=== PATIENT | female | born 1995 | race Two or more races ===

== ENCOUNTER 2017-06-22 09:17 | Inpatient (IN) | payer OTHER ==
[~2017-06-22] VITALS: Ht 160 cm; Wt 63.7 kg
[2017-06-22 10:01] LABS: Basophils # (auto) 0 uL; Basophils % (auto) 0.5 % (0.0-2.0); Eosinophils # (auto) 0.1 uL; Eosinophils % (auto) 1.9 % (0.0-7.0); Hematocrit 40.2 % (36.0-46.0); Hemoglobin 13.2 g/dL (12.2-16.2); Lymphocytes # (auto) 1.5 uL; Lymphocytes % (auto) 23.7 % (10.0-50.0); Mean Corpuscular Hemoglobin 27.1 pg (28.0-32.0); Mean Corpuscular Hgb Conc. 32.7 g/dL (32.0-36.0); Mean Corpuscular Volume 82.7 fL (80.0-100.0); Monocytes # (auto) 0.5 uL; Monocytes % (auto) 7.5 % (0.0-12.0); Neutrophils # (auto) 4.3 uL; Neutrophils % (auto) 66.4 % (37.0-80.0); Nucleated Red Blood Cells % 0.1 %; Platelet Count (auto) 188 10^3/uL (140-450); Red Blood Cells 4.86 10^6/uL (4.0-5.20); Red Cell Distribution Width 12.5 % (11.8-14.3); White Blood Cell 6.5 10^3/uL (4.4-10.8)
[2017-06-22 10:20] LABS: Albumin 4.1 g/dL (3.4-5.0); BUN/Creatinine Ratio 13.6; Potassium 3.8 mmol/L (3.5-5.1)
[2017-06-22 10:30] LABS: Bilirubin, Total 0.3 mg/dL (0.2-1.0); Calcium 8.9 mg/dL (8.5-10.1); Total Protein 7.9 g/dL (6.4-8.2)
[2017-06-22] MEDS ORDERED: NITROGLYCERIN 0.4 MG SL TAB SL ONE (13:15)
[2017-06-22] MEDS ORDERED: ASPirin 325 MG TAB PO ONE (13:15)
[2017-06-22] MEDS ORDERED: LORazepam 0.5 MG TAB PO ONE (13:45)
[2017-06-22] MEDS ORDERED: LORazepam 0.5 MG TAB PO PRN (13:45)
[2017-06-22] MEDS ORDERED: PROMETHAZINE HCL 25 MG/ML 1ML IV PRN (13:45)
[2017-06-22] MEDS ORDERED: HYDROcodone-ACET 5/325MG TAB PO PRN (13:45)
[2017-06-22] MEDS ORDERED: MORPHINE SULFATE 4 MG/ML SYR/VIAL IV PRN ×2 (13:45)
[2017-06-22] MEDS ORDERED: TEMAZEPAM 15 MG CAP PO PRN (13:45)
[2017-06-22] MEDS ORDERED: LACTULOSE 20Gm/30ML SOLN PO PRN (13:45)
[2017-06-22] MEDS ORDERED: ACETAMINOPHEN 500 MG TAB PO PRN (13:45)
[2017-06-22 14:01] LABS: INR 0.97 (0.9-1.15); Partial Thromboplastin Time 27.2 sec (22.64-33.71); Prothrombin Time 10.6 sec (9.37-12.3)
[2017-06-22 14:26] LABS: Alcohol, Urine < 3.0 mg/dL (0-5); Amphetamine Screen, Urine NEGATIVE (NEGATIVE); Barbiturate Scree,Urine NEGATIVE (NEGATIVE); Benzodiazephine Screen, Urine NEGATIVE (NEGATIVE); Cannabinoid Screen, Urine NEGATIVE (NEGATIVE); Cocaine Screen, Urine NEGATIVE (NEGATIVE); Opiate Scree,Urine NEGATIVE (NEGATIVE); Phencyclidine Screen, Urine NEGATIVE (NEGATIVE)
[2017-06-22] MEDS ORDERED: CLAR500T PO (16:23)
[2017-06-22] MEDS ORDERED: BUPR75TA9 PO (16:23)
[2017-06-22] MEDS ORDERED: AMOX250C3 PO (16:23)
[2017-06-22] MEDS ORDERED: OME20GT PO (16:23)
[2017-06-22 17:00] VITALS: BP_SYST 120; BP_SYST 121; BP_DIAS 68
[2017-06-22] MEDS: AMOXICILLIN TRIHYDRATE 250 MG CAP PO SCH (21:27)
[2017-06-22] MEDS: CLARITHROMYCIN 500 MG TAB PO SCH (21:27)
[2017-06-22] MEDS: CARVEDILOL 3.125 MG TAB PO SCH (21:28)
[2017-06-22] MEDS: buPROPion HCL 75 MG TAB PO SCH (21:34)
[2017-06-22 22:30] VITALS: BP 108/55
[2017-06-23 05:42] VITALS: BP 92/64
[2017-06-23 09:19] VITALS: BP 122/64
[2017-06-23] MEDS: AMOXICILLIN TRIHYDRATE 250 MG CAP PO SCH (09:57)
[2017-06-23] MEDS: buPROPion HCL 75 MG TAB PO SCH ×2 (09:58→10:00)
[2017-06-23] MEDS ORDERED: PANTOPRAZOLE 40 MG TAB PO SCH (10:00)
[2017-06-23] MEDS: CARVEDILOL 3.125 MG TAB PO SCH (10:00)
[2017-06-23] MEDS ORDERED: ASPirin 81 mg TAB PO SCH (10:00)
[2017-06-23] MEDS ORDERED: BUPROPION 150 MG PO SCH (10:00)
[2017-06-23] MEDS: CLARITHROMYCIN 500 MG TAB PO SCH (10:01)
[2017-06-23] MEDS ORDERED: METOPROLOL SUCCINATE XL 50 MG TAB PO ONE (11:00)
[2017-06-23 12:25] VITALS: BP 122/64
[2017-06-24] MEDS ORDERED: METOPROLOL SUCCINATE XL 50 MG TAB PO SCH (10:00)
== END 2017-06-23 13:15 | disposition home or self-care (01) | DRG 313 ==
LOC: ER 09:17 → TELE 09:18 → TELE-CENTR 16:03
PROVIDERS: ADMIT Internal Medicine; ATTEND Family Medicine
DX: R07.89 Other chest pain (principal); I24.9 Acute ischemic heart disease, unspecified; I42.1 Obstructive hypertrophic cardiomyopathy; I42.2 Other hypertrophic cardiomyopathy; B96.81 Helicobacter pylori [H. pylori] as the cause of diseases classified elsewhere; F32.9 Major depressive disorder, single episode, unspecified; F41.9 Anxiety disorder, unspecified; K29.70 Gastritis, unspecified, without bleeding; Z95.810 Presence of automatic (implantable) cardiac defibrillator; I08.0 Rheumatic disorders of both mitral and aortic valves
CPT/HCPCS: 36415; 71046; 80053; 80061; 80307; 82550; 83880; 84443; 84484; 85025; 85379; 85610; 85730; 93005; 93306

== ENCOUNTER 2017-09-09 11:13 | Inpatient (IN) | payer OTHER ==
[~2017-09-09] VITALS: Ht 157.5 cm; Wt 64.1 kg
[~2017-09-09 11:13] MED LIST: AMOX250C3 PO; BUPR75TA9 PO; CLAR500T PO; OME20GT PO
[2017-09-09 12:06] LABS: Basophils # (auto) 0 uL; Basophils % (auto) 0.5 % (0.0-2.0); Eosinophils # (auto) 0.9 uL; Eosinophils % (auto) 10.4 % (0.0-7.0); Hematocrit 39.8 % (36.0-46.0); Hemoglobin 13.1 g/dL (12.2-16.2); Lymphocytes # (auto) 2.3 uL; Lymphocytes % (auto) 27.5 % (10.0-50.0); Mean Corpuscular Hemoglobin 27.3 pg (28.0-32.0); Mean Corpuscular Hgb Conc. 32.9 g/dL (32.0-36.0); Mean Corpuscular Volume 83.1 fL (80.0-100.0); Monocytes # (auto) 0.7 uL; Neutrophils # (auto) 4.5 uL; Neutrophils % (auto) 53.6 % (37.0-80.0); Platelet Count (auto) 212 10^3/uL (140-450); Red Blood Cells 4.79 10^6/uL (4.0-5.20); Red Cell Distribution Width 12.5 % (11.8-14.3); White Blood Cell 8.5 10^3/uL (4.4-10.8)
[2017-09-09 12:27] LABS: Albumin 4.1 g/dL (3.4-5.0); BUN/Creatinine Ratio 15.3; Bilirubin, Total 0.3 mg/dL (0.2-1.0); Calcium 9.2 mg/dL (8.5-10.1); Magnesium 2.7 mg/dL (1.6-2.6); Potassium 3.8 mmol/L (3.5-5.1); Total Protein 8.1 g/dL (6.4-8.2)
[2017-09-09] MEDS ORDERED: ASPirin-EC 81 mg tab PO ONE (13:15)
[2017-09-09 13:45] LABS: Urine WBC None Seen /hpf (0 - 5)
[2017-09-09] MEDS ORDERED: ONDANSETRON HCL 4 MG/2 ML VIAL IV ONE (13:45)
[2017-09-09 13:52] LABS: Urine Bacteria NONE SEEN /hpf (None Seen); Urine Blood Negative /uL (Negative); Urine Specific Gravity 1.005 (1.001-1.035)
[2017-09-09] MEDS ORDERED: METOPROLOL SUCCINATE XL 50 MG TAB PO SCH (15:15)
[2017-09-09] MEDS ORDERED: PROMETHAZINE HCL 25 MG/ML 1ML IV PRN (15:15)
[2017-09-09] MEDS ORDERED: LORazepam 0.5 MG TAB PO PRN (15:15)
[2017-09-09] MEDS ORDERED: ACETAMINOPHEN 500 MG TAB PO PRN (15:15)
[2017-09-09] MEDS ORDERED: NITROGLYCERIN 0.4 MG SL TAB SL PRN (15:15)
[2017-09-09] MEDS ORDERED: MORPHINE SULFATE 4 MG/ML SYR/VIAL IV PRN ×2 (15:15)
[2017-09-09] MEDS ORDERED: LACTULOSE 20Gm/30ML SOLN PO PRN ×2 (15:15)
[2017-09-09] MEDS ORDERED: TEMAZEPAM 15 MG CAP PO PRN (15:15)
[2017-09-09] MEDS ORDERED: HYDROcodone-ACET 5/325MG TAB PO PRN (15:15)
[2017-09-09 15:47] LABS: Alcohol, Urine < 3.0 mg/dL (0-5); Amphetamine Screen, Urine NEGATIVE (NEGATIVE); Barbiturate Scree,Urine NEGATIVE (NEGATIVE); Benzodiazephine Screen, Urine NEGATIVE (NEGATIVE); Cannabinoid Screen, Urine NEGATIVE (NEGATIVE); Cocaine Screen, Urine NEGATIVE (NEGATIVE); Opiate Scree,Urine NEGATIVE (NEGATIVE); Phencyclidine Screen, Urine NEGATIVE (NEGATIVE)
[2017-09-09] MEDS ORDERED: ONDANSETRON HCL 4 MG/2 ML VIAL IV PRN (17:00)
[2017-09-09 17:45] VITALS: BP 119/67
[2017-09-09 18:10] VITALS: BP 119/67
[2017-09-09] MEDS ORDERED: MIRT15TA3 PO (18:21)
[2017-09-09] MEDS ORDERED: ONDA8TAB6 PO (18:21)
[2017-09-09] MEDS ORDERED: RANI1TAB6 PO (18:21)
[2017-09-09] MEDS: METOCLOPRAMIDE HCL 5MG/ml INJ 2ml VIAL IV PRN (18:48)
[2017-09-09] MEDS: PANTOPRAZOLE 40 MG TAB PO SCH (21:33)
[2017-09-09 21:34] VITALS: BP 93/57
[2017-09-09] MEDS ORDERED: OMEPRAZOLE 20MG/10ML ORAL SUSP PO SCH (22:00)
[2017-09-09] MEDS: SODIUM CHLOR 0.9% PF (SALINE LOCK) 10ML VIAL/SYR IV SCH (22:22)
[2017-09-09] MEDS ORDERED: MIRTAZAPINE 30 MG TAB ONE (22:40)
[2017-09-09] MEDS ORDERED: MIRTAZAPINE 30 MG TAB PO SCH (23:00)
[2017-09-10 05:32] VITALS: BP 103/53
[2017-09-10 06:15] LABS: Cholesterol 182 mg/dL (< 200); HDL Cholesterol 49 mg/dL (40-59); LDL Cholesterol 126 mg/dL (< 100); Triglycerides 108 mg/dL (< 150)
[2017-09-10] MEDS: SODIUM CHLOR 0.9% PF (SALINE LOCK) 10ML VIAL/SYR IV SCH ×2 (06:24→14:52)
[2017-09-10] MEDS ORDERED: buPROPion HCL 75 MG TAB PO SCH ×2 (07:00→19:00)
[2017-09-10 09:00] VITALS: BP 124/65
[2017-09-10] MEDS ORDERED: buPROPion HCL 75 MG TAB PO ONE (09:30)
[2017-09-10] MEDS ORDERED: METOPROLOL SUCCINATE XL 50 MG TAB PO SCH (10:00)
[2017-09-10] MEDS ORDERED: ASPirin 81 mg TAB PO SCH (10:00)
[2017-09-10] MEDS: PANTOPRAZOLE 40 MG TAB PO SCH (10:03)
[2017-09-10] MEDS: METOCLOPRAMIDE HCL 5MG/ml INJ 2ml VIAL IV PRN (10:23)
[2017-09-10 12:45] VITALS: BP 107/59
[2017-09-11] MEDS ORDERED: buPROPion HCL 75 MG TAB PO SCH (10:00)
== END 2017-09-10 14:50 | disposition home or self-care (01) | DRG 292 ==
LOC: ER 11:13 → TELE-EAST 11:14
PROVIDERS: ADMIT Internal Medicine; ATTEND Internal Medicine
DX: I50.41 Acute combined systolic (congestive) and diastolic (congestive) heart failure (principal); I42.2 Other hypertrophic cardiomyopathy; R07.89 Other chest pain; F41.8 Other specified anxiety disorders; I35.0 Nonrheumatic aortic (valve) stenosis; F32.9 Major depressive disorder, single episode, unspecified; E66.3 Overweight; Z83.3 Family history of diabetes mellitus; Z82.49 Family history of ischemic heart disease and other diseases of the circulatory system; Z86.19 Personal history of other infectious and parasitic diseases; Z68.25 Body mass index [BMI] 25.0-25.9, adult; Z95.810 Presence of automatic (implantable) cardiac defibrillator
CPT/HCPCS: 36415; 71045; 80053; 80061; 80307; 81001; 82550; 83735; 83880; 84443; 84484; 85025; 85379; 85652; 86141; 93005; 96374; 99291

== ENCOUNTER 2023-06-11 20:21 | Emergency (ER) | payer BC, OTHER ==
[~2023-06-11] VITALS: Ht 157.5 cm; Wt 70.5 kg
[~2023-06-11 20:21] MED LIST changes: -AMOX250C3 PO; -BUPR75TA9 PO; +BUPR75TA96 PO; -CLAR500T PO; +MIRT1TAB38 PO; +ONDA-143 PO; +RANI-435 PO
[2023-06-11 20:48] VITALS: BP 143/90; PULSE 89; RESP 19; O2SAT 100
== END 2023-06-12 00:43 | disposition left against medical advice (07) ==
LOC: ER 20:21
DX: R25.3 Fasciculation (principal); T43.225A Adverse effect of selective serotonin reuptake inhibitors, initial encounter; Z53.21 Procedure and treatment not carried out due to patient leaving prior to being seen by health care provider; Y92.89 Other specified places as the place of occurrence of the external cause

== ENCOUNTER 2024-03-19 00:18 | Emergency (ER) | payer BC ==
[~2024-03-19] VITALS: Ht 157.5 cm; Wt 80.2 kg
[2024-03-19 01:13] LABS: Hematocrit 41.6 % (36.0-46.0); Hemoglobin 13.7 g/dL (12.2-16.2); Mean Corpuscular Hemoglobin 27.4 pg (28.0-32.0); Mean Corpuscular Hgb Conc. 32.9 g/dL (32.0-36.0); Mean Corpuscular Volume 83.1 fL (80.0-100.0); Platelet Count (auto) 190 10^3/uL (140-450); Red Blood Cells 5.01 10^6/uL (4.0-5.20); Red Cell Distribution Width 12.5 % (11.8-14.3); White Blood Cell 15.6 10^3/uL (4.4-10.8)
[2024-03-19 01:15] LABS: Basophils % (manual) 0 (0.0-2.0); Blast Cells 0; Eosinophils % (manual) 0 (0-7); Metamyelocytes % 0; Myelocytes % 0; Promyelocytes % 0; Reactive Lymphocytes 0
[2024-03-19 01:28] LABS: Alanine Aminotransferase 15 U/L (7-40); Albumin 5.1 g/dL (3.2-4.8); Alkaline Phosphatase 63 U/L (46-116); Anion Gap 9 (5-15); Aspartate Aminotransferase 30 U/L (13-40); BUN/Creatinine Ratio 12.5 (10.0-20.0); Blood Urea Nitrogen 11 mg/dL (9-23); Calcium 10.1 mg/dL (8.7-10.4); Carbon Dioxide 21 mmol/L (20-31); Chloride 108 mmol/L (98-107); Glucose 129 mg/dL (74-106); Lipase 37 U/L (12-53); Potassium 3.6 mmol/L (3.5-5.1); Sodium 138 mmol/L (136-145)
[2024-03-19 01:29] LABS: Total Protein 7.9 g/dL (5.7-8.2)
[2024-03-19 01:36] LABS: Band Neutrophils % (manual) 6; Lymphocytes % (manual) 1 (10.0-50.0); Monocytes % (manual) 4 (0-12); Platelet Estimate Adequate; RBC Morphology Normal
[2024-03-19 01:40] LABS: Urine Bacteria None Seen /hpf (None Seen); Urine WBC None Seen /hpf (0 - 5)
[2024-03-19 02:08] LABS: Urine Amorphous Crystal MANY /hpf (None Seen); Urine Blood Negative /uL (Negative); Urine Clarity Ex.Turbid (Clear); Urine Color Colorless (Yellow); Urine Protein, UAD Negative (Negative); Urine Specific Gravity 1.022 (1.001-1.035); Urine Urobilinogen Normal (Negative)
[2024-03-19 02:21] VITALS: PULSE 100; RESP 16; O2SAT 97
[2024-03-19] MEDS: MAALOX PLUS or MAALOX 30 ML PO ONE (02:30)
[2024-03-19] MEDS: LIDOCAINE VISCOUS 2% 15ML UD MT ONE (02:30)
[2024-03-19] MEDS: ONDANSETRON ODT 4 MG TAB PO ONE (02:30)
--- NOTE | 2024-03-19 02:40 | DVH ---
Examination: ABPL CLINICAL INDICATION: abd pain COMPARISON: None. CONTRAST USED: None. TECHNIQUE: A plain CT study of the abdomen and pelvis is performed. The examination was performed w ith [address] scan done according to ALARA (As Low as Reasonably Achievable). Multiplana r reconstructions were obtained. FINDINGS: CT ABDOMEN: Lung Base: The evaluation of lung bases demonstrates no focal infiltrates or pleural effusion. Pace maker wires in the right atrium and ventricle. Unenhanced Liver: Normal size liver with normal attenuation. A well-defined 3.3 x 2.5 cm cyst in seg ment II of liver. There is no intrahepatic biliary radicle dilatation. Gallbladder appears unremarkable. No intraluminal pathology. The common bile duct is not dilated. Unenhanced Pancreas: The pancreas is normal in size and shape. No focal lesion is seen within. Th e peripancreatic fat-planes are normal. Unenhanced Spleen: The spleen is normal in size and does not show any focal abnormality. Retroperitoneum: Both adrenal glands are normal in size and morphology in this unenhanced CT scan. There is no significant retroperitoneal lymphadenopathy. The kidneys are normal in size. No renal calculus or hydronephrosis. Perinephric spaces are clear. Vessels: Aorta, IVC and the mesenteric vessels cannot be commented in this unenhanced CT scan. Stomach and Bowel: The bowel loops are unremarkable. There is no ascites. Small omental fat contai saad right paraumbilical hernia [12 x 6 mm]. Skeletal System: No acute osseous abnormality or focal osseous lesion. CT PELVIS: Appendix is visualized and appears unremarkable. Colon: Moderate fecal residue in the descending, sigmoid colon and rectum. Mild fluid-filled distend ed cecum, ascending and transverse colon. No diverticulosis or diverticulitis. No inflammatory aleida l wall thickening. Bladder: The urinary bladder is unremarkable. Uterus and ovaries appear unremarkable. No adnexal mass. No pelvic lymphadenopathy is identified. No abnormal fluid collection is seen. IMPRESSION: 1. No acute intra-abdominal pathology. No abdominal fat stranding or collection. 2. Gallbladder, pancreas and appendix appear unremarkable. No evidence of renal or ureteric calculu s. A well-defined 2.5 x 3.3 cm cyst in segment II of liver. 3. Moderate fecal residue in the descending, sigmoid colon and rectum. Mild fluid-filled distended cecum, ascending and transverse colon. No diverticulosis or diverticulitis. No inflammatory bowel w all thickening. Mild fluid-filled distended small bowel loops. No air-fluid level or features of phoebe wel obstruction. Small omental fat containing right paraumbilical hernia [12 x 6 mm]. 4. Uterus and ovaries appear unremarkable. No adnexal mass. Electronically Signed 03/19/2024 02:32 Kumar Fitzgerald
[2024-03-19] MEDS ORDERED: ONDA-155 PO (02:42)
--- NOTE | 2024-03-19 02:44 | ED.PDOC ---
GI ASSESSMENT HPI Comments Female complaining of midepigastric pain. Patient states she was at work today when she was started vomiting. States she thinks she had too much water. States she was not had any food today just fluids. Patient does report a history of gastric reflux and history of H pylori. Patient states symptoms do feel similar to last time she had a flare-up. No new foods no new medications. Nothing makes it better, eating makes it worse. Chief Complaint: Nausea/Vomiting Time Seen by MD: 00:34 Primary Care Provider: Eduardo Chávez Reviewed Notes: Nurses Notes Allergies: Coded Allergies: NO KNOWN ALLERGIES (Unverified , 06/22/17) Home Meds Active Scripts Ondansetron HCl (Ondansetron) 4 Mg Tab, 4 MG PO TID PRN, #20 TAB Prov:JESUS YOUNGER 03/19/24 Reported Medications Mirtazapine (Mirtazapine Oral Disintegrating Tablet) 15 Mg Tab, 1 TAB PO QPM, #30 TAB 3 Refills 09/09/17 Ranitidine HCl (Ranitidine [address]) 150 Mg Tab, 150 MG PO HS, TAB 09/09/17 Ondansetron (Zofran) 8 Mg Tab, 1 TAB PO Q8HR, #30 TAB 1 Refill 09/09/17 Omeprazole (Prilosec Susp (For Gt)) 20 Mg Ss, 20 MG PO BID 06/22/17 Bupropion Hcl (Bupropion Hcl) 75 Mg Tab, 150 MG PO DAILY for 30 Days 06/22/17 Information Source: Patient Mode of Arrival: Ambulatory Past Medical History PAST MEDICAL HISTORY: Anxiety, Depression Surgical History: Pacemaker Family History Family History: Unknown Social History Smoker: Non-Smoker Alcohol: Denies ETOH Use Drugs: Denies Drug Use Lives In: Home Constitutional: denies: chills, diaphoresis, fatigue, fever, malaise, sweats, weakness, others EENTM: denies: blurred vision, double vision, ear bleeding, ear discharge, ear drainage, ear pain, ear ringing, eye pain, eye redness, hearing loss, mouth pain, mouth swelling, nasal discharge, nose bleeding, nose congestion, nose pain, photophobia, tearing, throat pain, throat swelling, voice changes, others Respiratory: denies: cough, hemoptysis, orthopnea, SOB at rest, shortness of breath, SOB with excertion, stridor, wheezing, others Cardiovascular: denies: chest pain, dizzy spells, diaphoresis, Dyspnea on exertion, edema, irregular heart beat, left arm pain, lightheadedness, palpitations, PND, syncope, others Gastrointestinal: reports: abdominal pain, nausea, vomiting; denies: abdomen distended, blood streaked bowels, constipated, diarrhea, dysphagia, difficulty swallowing, hematemesis, melena, poor appetite, poor fluid intake, rectal bleeding, others Genitourinary: denies: abnormal vagina bleeding, burning, dyspareunia, dysuria, flank pain, frequency, hematuria, incontinence, pain, , vagina discharge, urgency, others Neurological: denies: dizziness, fainting, headache, left sided numbness, left sided weakness, numbness, paresthesia, pre-existing deficit, right sided numbness, right sided weakness, seizure, speech problems, tingling, tremors, weakness, others Musculoskeletal: denies: back pain, gout, joint pain, joint swelling, muscle pain, muscle stiffness, neck pain, others Integumetry: denies: bruises, change in color, change in hair/nails, dryness, laceration, lesions, lumps, rash, wounds, others Allergic/Immunocompromised: denies: Difficulty Healing, Frequent Infections, Hives, Itching, others Hematologic/Lymphatic: denies: anemia, blood clots, easy bleeding, easy bruising, swollen glands, others Physical Exam General Appearance: No Apparent Distress, Normal HEENT: Normal ENT Inspection, Pharynx Normal, TMs Normal Neck: Full Range of Motion, Non-Tender, Normal, Normal Inspection Respiratory: Chest Non-Tender, Lungs Clear, No Accessory Muscle Use, No Respiratory Distress, Normal Breath Sounds Cardiovascular: No Edema, No JVD, No Murmur, No Gallop, Normal Peripheral Pulses, Regular Rate/Rhythm Breast Exam: Deferred Gastrointestinal: No Organomegaly, Non Tender, No Pulsatile Mass, Normal Bowel Sounds, Soft Genitalia: Deferred Pelvic: Deferred Rectal: Deferred Extremities: No calf tenderness, Normal capillary refill, Normal inspection, Normal range of motion, Non-tender, No pedal edema Musculoskeletal : Apperance: Normal Neurologic: Alert, 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 Was a procedure done?: No GI differential Dx Differential Diagnosis: Bowel Obstruction, Cholangitis, Cholecystitis, Gastritis/PUD, Gastroenteritis, GI hemorrhage X-Ray, Labs, Meds, VS Vital Signs Date Time Temp Pulse Resp B/P (MAP) Pulse Ox O2 Delivery O2 Flow Rate FiO2 03/19/24 02:21 100 16 97 Room Air* 0 21 03/19/24 02:21 98.7 100 16 120/59 (79) 97 98.7 03/19/24 00:22 99.1 128 18 156/81 (106) 96 Lab Test 03/19/24 01:00 03/19/24 00:25 Range/Units White Blood Count 15.6 H 4.4-10.8 10^3/uL Red Blood Count 5.01 4.0-5.20 10^6/uL Hemoglobin 13.7 12.2-16.2 g/dL Hematocrit 41.6 36.0-46.0 % Mean Corpuscular Volume 83.1 80.0-100.0 fL Mean Corpuscular Hemoglobin 27.4 L 28.0-32.0 pg Mean Corpuscular Hemoglobin Concent 32.9 32.0-36.0 g/dL Red Cell Distribution Width 12.5 11.8-14.3 % Platelet Count 190 140-450 10^3/uL Mean Platelet Volume 9.4 6.9-10.8 fL Neutrophils (%) (Auto) 37.0-80.0 % Lymphocytes (%) (Auto) 10.0-50.0 % Monocytes (%) (Auto) 0.0-12.0 % Basophils (%) (Auto) 0.0-2.0 % Neutrophils # (Auto) 1.6-8.6 10 ^3/uL Lymphocytes # (Auto) 0.4-5.4 10 ^3/uL Monocytes # (Auto) 0-1.3 10 ^3/uL Differential Total Cells Counted 100.0 100 Neutrophils % (Manual) 89 H 37.0-80.0 Band Neutrophils % (Manual) 6 Lymphocytes % (Manual) 1 L 10.0-50.0 Monocytes % (Manual) 4 0-12 Eosinophils % (Manual) 0 0-7 Basophils % (Manual) 0 0.0-2.0 Metamyelocytes % (manual) 0 Myelocytes % (Manual) 0 Promyelocytes % (Manual) 0 Blast Cells % (Manual) 0 Reactive Lymphocytes 0 Platelet Estimate Adequate Red Blood Cell Morphology Normal Sodium Level 138 136-145 mmol/L Potassium Level 3.6 3.5-5.1 mmol/L Chloride Level 108 H 98-107 mmol/L Carbon Dioxide Level 21 20-31 mmol/L Anion Gap 9 5-15 Blood Urea Nitrogen 11 9-23 mg/dL Creatinine 0.88 0.550-1.02 mg/dL Glomerular Filtration Rate Calc 93 >90 mL/min BUN/Creatinine Ratio 12.5 10.0-20.0 Serum Glucose 129 H 74-106 mg/dL Calcium Level 10.1 8.7-10.4 mg/dL Total Bilirubin 1.0 0.2-1.0 mg/dL Aspartate Amino Transferase (AST) 30 13-40 U/L Alanine Aminotransferase (ALT) 15 7-40 U/L Alkaline Phosphatase 63 46-116 U/L Total Protein 7.9 5.7-8.2 g/dL Albumin 5.1 H 3.2-4.8 g/dL Lipase 37 12-53 U/L Urine Color Colorless Yellow Urine Clarity Ex.turbid Clear Urine pH 5.0 5.0-9.0 Urine Specific [place] 1.022 1.001-1.035 Urine Protein Negative Negative Urine Ketones Negative Negative Urine Blood Negative Negative /uL Urine Nitrite Negative Negative Urine Bilirubin Negative Negative Urine Urobilinogen Normal Negative mg/dL Urine Leukocyte Esterase Negative Negative /uL Urine RBC None seen 0 - 4 /hpf Urine WBC None seen 0 - 5 /hpf Urine Squamous Epithelial Cells None seen <5 /hpf Urine Amorphous Crystals Many None Seen /hpf Urine Bacteria None seen None Seen /hpf Urine Glucose Normal Normal mg/dL Current Medications Medications (Trade) Dose Ordered Sig/Ramy Route Start Time Stop Time Status Last Admin Ondansetron HCl (Zofran Po) 4 mg ONCE ONCE PO 03/19/24 01:15 03/19/24 01:16 DC 03/19/24 02:30 Lidocaine HCl (Xylocaine 2% Viscous) 5 ml ONCE ONCE MT 03/19/24 01:15 03/19/24 01:16 DC 03/19/24 02:30 Al Hydrox/Mg Hydrox/Simethicone (Maalox Plus) 30 ml ONCE ONCE PO 03/19/24 01:15 03/19/24 01:16 DC 03/19/24 02:30 X-Ray, Labs, Meds, VS Comment Imaging: X-rays and CT scans were reviewed and interpreted by this provider, imaging shows no fractures and no pathological disease. Pending radiology review. Laboratory: Labs reviewed and interpreted by this provider. No significant abnormalities noted. Patient has prior medical visits reviewed. Med reconciliation performed Vital signs reviewed Time of 1ST Reevaluation: 02:42 Reevaluation 1ST: Improved Patient Education/Counseling: Diagnosis, Treatment, Need For Follow Up (Patient advised to follow-up in the emergency room in the next 24 to 48 hours if symptoms do not improve. Advised follow-up with PCP in the next 3 to 5 days. Patient verbalized understanding. ) Family Education/Counseling: Diagnosis, Treatment Departure 1 Departure Time of Disposition: 02:41 Impression: Primary Impression: Gastritis Qualified Codes: K29.00 - Acute gastritis without bleeding Additional Impression: Peptic ulcer Disposition: 01 HOME / SELF CARE / HOMELESS Condition: Fair e-Prescriptions Ondansetron HCl (Ondansetron) 4 Mg Tab 4 MG PO TID PRN, #20 TAB Prov: JESUS YOUNGER 03/19/24 Discharged With: Self Critical Care Note Critical Care Time?: No Stability Stability form required: No Heart Score Heart Score: Heart Score Response (Comments) Value History N/A 0 EKG N/A 0 Age N/A 0 Risk Factors N/A 0 Troponin N/A 0 Total 0 JESUS YOUNGER Mar 19, 2024 02:44
[2024-03-19 04:25] VITALS: BP 108/58; PULSE 105; RESP 18; TEMP 99.5; O2SAT 95
== END 2024-03-19 04:28 | disposition home or self-care (01) ==
LOC: ER 00:18
DX: K29.70 Gastritis, unspecified, without bleeding (principal); K27.9 Peptic ulcer, site unspecified, unspecified as acute or chronic, without hemorrhage or perforation; F41.9 Anxiety disorder, unspecified; F32.A Depression, unspecified; Z79.899 Other long term (current) drug therapy; Z95.0 Presence of cardiac pacemaker
CPT/HCPCS: 36415; 74176; 80053; 81001; 83690; 85007; 85027; 99284; Q0162